=== PATIENT | female | born 1965 | race Hispanic/Latino ===

== ENCOUNTER 2023-06-16 08:15 | Emergency (ER) | payer BC, OTHER ==
[~2023-06-16] VITALS: Ht 157.5 cm; Wt 81.6 kg
[2023-06-16] MEDS ORDERED: KETOROLAC TROMETHAMINE 30 MG/ML VIAL ONE (08:40)
[2023-06-16] MEDS: CYCLOBENZAPRINE HCL 10 MG TAB PO ONE (08:42)
[2023-06-16] MEDS: KETOROLAC TROMETHAMINE 30 MG/ML VIAL IM ONE (08:42)
[2023-06-16] MEDS ORDERED: CYCLOBENZAPRINE10 MG PO (09:34)
[2023-06-16 09:42] VITALS: BP 137/75; PULSE 76; RESP 16; TEMP 98.5; O2SAT 100
== END 2023-06-16 09:50 | disposition home or self-care (01) ==
LOC: ER 08:22
DX: M54.16 Radiculopathy, lumbar region (principal); E11.9 Type 2 diabetes mellitus without complications; E78.5 Hyperlipidemia, unspecified
CPT/HCPCS: 99283; J1885

== ENCOUNTER → 2024-08-13 | Outpatient (REF) | payer OTHER ==
[~2024-08-13] MED LIST: CYCLOBENZAPRINE10 MG PO
== END ==
LOC: US 13:14
PROVIDERS: ATTEND Nurse Practitioner Family
DX: K76.89 Other specified diseases of liver (principal)
CPT/HCPCS: 76705